=== PATIENT | female | born 1975 | race Caucasian/White ===

== ENCOUNTER 2018-11-23 13:21 | Emergency (ER) | payer MEDICAID ==
[~2018-11-23] VITALS: Ht 157.5 cm; Wt 117.0 kg
[2018-11-23] MEDS ORDERED: DOXY100C43 PO (14:19)
[2018-11-23] MEDS ORDERED: METH4TAB81 PO (14:19)
[2018-11-23] MEDS ORDERED: ALBU8.5H8 IH (14:19)
[2018-11-23] MEDS ORDERED: ipratropium/albuterol 3ml nebule NEB ONE (14:20)
--- NOTE | 2018-11-23 14:37 | NUR ---
RT PAGES FOR THE 2ND TIME
[2018-11-23 14:52] VITALS: BP 131/96
== END 2018-11-23 14:59 | disposition home or self-care (01) ==
LOC: ER 13:22
DX: J45.909 Unspecified asthma, uncomplicated (principal); Z98.890 Other specified postprocedural states; Z88.0 Allergy status to penicillin; Z88.1 Allergy status to other antibiotic agents; Z79.899 Other long term (current) drug therapy
CPT/HCPCS: 93005; 94640; 94760; 99284

== ENCOUNTER 2019-03-31 10:09 | Emergency (ER) | payer MEDICAID ==
[~2019-03-31] VITALS: Ht 162.6 cm; Wt 122.7 kg
[~2019-03-31 10:09] MED LIST: ALBU8.5H8 IH; CLIN-96 PO; METH4TAB81 PO; METR-159 PO
[2019-03-31 10:23] VITALS: BP 112/46
[2019-03-31] MEDS ORDERED: SULF1TAB49 PO (13:16)
[2019-03-31] MEDS ORDERED: LOPE2CAP PO (13:16)
[2019-03-31] MEDS ORDERED: ONDA4TAB6 PO (13:16)
== END 2019-03-31 13:28 | disposition home or self-care (01) ==
LOC: ER 10:09
DX: K57.92 Diverticulitis of intestine, part unspecified, without perforation or abscess without bleeding (principal); J45.909 Unspecified asthma, uncomplicated; R21 Rash and other nonspecific skin eruption; Z98.890 Other specified postprocedural states; Z60.2 Problems related to living alone; Z88.0 Allergy status to penicillin; Z88.1 Allergy status to other antibiotic agents; Z79.899 Other long term (current) drug therapy
CPT/HCPCS: 99283

== ENCOUNTER 2019-05-19 13:18 | Emergency (ER) | payer MEDICAID ==
[~2019-05-19] VITALS: Ht 162.6 cm; Wt 109.1 kg
[~2019-05-19 13:18] MED LIST changes: +LOPE2CAP PO; -METR-159 PO; +ONDA4TAB6 PO
[2019-05-19 13:42] VITALS: BP 127/75
[2019-05-19] MEDS ORDERED: NYST30CR2 TP (14:16)
== END 2019-05-19 14:33 | disposition home or self-care (01) ==
LOC: ER 13:19
DX: B37.2 Candidiasis of skin and nail (principal); J45.909 Unspecified asthma, uncomplicated; Z88.0 Allergy status to penicillin; Z88.1 Allergy status to other antibiotic agents; Z79.899 Other long term (current) drug therapy; Z98.890 Other specified postprocedural states; Z87.19 Personal history of other diseases of the digestive system
CPT/HCPCS: 99283

== ENCOUNTER 2019-07-02 11:10 | Emergency (ER) | payer MEDICAID ==
[~2019-07-02] VITALS: Ht 162.6 cm; Wt 123.0 kg
[~2019-07-02 11:10] MED LIST changes: +NYST30CR2 TP
[2019-07-02 11:51] LABS: URINE HCG NEGATIVE (NEG)
--- NOTE | 2019-07-02 12:17 | NUR ---
lab called stating they need a new urine sample.
[2019-07-02 12:29] LABS: BASOPHILS # (AUTO) 0.1 X10'3 (0-0.2); BASOPHILS % (AUTO) 0.6 % (0-1); EOSINOPHILS # (AUTO) 0.2 X10'3 (0-0.9); EOSINOPHILS % (AUTO) 1.7 % (0-6); HEMATOCRIT 32.1 % (35.0-45.0); HEMOGLOBIN 10.1 g/dl (12.0-16.0); LYMPHOCYTES # (AUTO) 1.8 X10'3 (1.1-4.8); LYMPHOCYTES % (AUTO) 19.5 % (21-51); MEAN CORPUSCULAR HGB CONC 31.6 g/dL (33.0-36.5); MEAN CORPUSCULAR VOLUME 72.8 FL (78-98); MONOCYTES # (AUTO) 0.7 X10'3 (0-0.9); MONOCYTES % (AUTO) 7.8 % (2-12); NEUTROPHILS # (AUTO) 6.5 X10'3 (1.8-7.7); NEUTROPHILS % (AUTO) 70.4 % (42-75); PLATELET COUNT 249 X10'3 (140-440); RED CELL DISTRIBUTION WIDTH 19.5 % (11.5-14.5); WHITE BLOOD COUNT 9.3 X10'3 (4.5-11.0)
[2019-07-02 12:45] LABS: ALANINE AMINOTRANSFERASE 22 U/L (12-78); ALBUMIN 3.1 G/DL (3.4-5.0); ALBUMIN/GLOBULIN RATIO 0.9 (1.1-1.5); ALKALINE PHOSPHATASE 73 IU/L (46-116); ANION GAP 5 (8-16); ASPARTATE AMINO TRANSFERASE 15 U/L (10-37); BILIRUBIN,TOTAL 1.2 MG/DL (0.1-1.0); BLOOD UREA NITROGEN 16 MG/DL (7-18); BUN/CREATININE RATIO 23.2 (6.6-38.0); CALCIUM 8.3 MG/DL (8.5-10.1); CHLORIDE 108 MMOL/L (99-107); CREATININE 0.69 MG/DL (0.40-0.90); GLUCOSE 87 MG/DL (70-104); LIPASE 96 U/L (73-393); SODIUM 141 MMOL/L (135-145); TOTAL CARBON DIOXIDE 27.7 MMOL/L (24-32); TOTAL PROTEIN 6.5 G/DL (6.4-8.2); eGFR > 90 ML/MIN
[2019-07-02 13:25] LABS: HYPOCHROMASIA 1+; PLATELET ESTIMATE NORMAL; POLYCHROMASIA 1+
[2019-07-02 13:26] LABS: ANISOCYTOSIS 2+; ELLIPTOCYTES 1+; MICROCYTOSIS 1+
[2019-07-02] MEDS ORDERED: ketorolac trometh. 30mg/ml inj. IV ONE (15:00)
[2019-07-02] MEDS ORDERED: normal saline 1000ML IV soln IVB ONE (15:00)
[2019-07-02 15:46] LABS: CLARITY,URINE SLIGHTLY CLOUDY (Clear); GLUCOSE, URINE NEGATIVE (Neg); KETONES,URINE 15 mg/dl (Neg); LEUKOCYTE ESTERASE ,URINE NEGATIVE (Neg); NITRITES, URINE NEGATIVE (Neg); OCCULT BLOOD,URINE LARGE (Neg); PH,URINE 5.5 (4.8-8.0); PROTEIN,URINE NEGATIVE (Neg)
[2019-07-02 15:47] LABS: COLOR,URINE DARK YELLOW (Yellow); UA COLLECTION TYPE CLN CATCH MIDSTREAM
[2019-07-02 15:55] LABS: RBC,URINE 50-100 /HPF (0-2); WBC,URINE 0-4 /HPF (0-4)
[2019-07-02 15:56] LABS: BACTERIA,URINE 1+ /HPF (Neg); MUCUS STRANDS MANY /LPF (Neg); SQUAMOUS EPITHELIAL CELL,UR MANY /LPF (FEW)
[2019-07-02] MEDS ORDERED: morphine 4 MG/ML inj SYRINge IV ONE (16:30)
[2019-07-02] MEDS ORDERED: DICY10CA88 PO (16:33)
--- NOTE | 2019-07-02 16:52 | NUR ---
transvaginal us done now, pt going to ct scanner
[2019-07-02] MEDS ORDERED: iohexol 350MG/ML 100ml bottle IV ONE (16:55)
[2019-07-02 19:13] VITALS: BP 122/86
--- NOTE | 2019-07-02 19:18 | NUR ---
DISCUSSED PT'S REQUEST FOR NICOTINE PATCH WITH DR TERRY; NEW ORDER RECEIVED.
[2019-07-02] MEDS ORDERED: nicotine 21mg patch - 24 hr TD ONE (19:20)
[2019-07-02] MEDS ORDERED: CEFD300C3 PO (19:58)
[2019-07-02] MEDS ORDERED: METR-159 PO (19:58)
[2019-07-02] MEDS ORDERED: CefTRIAXone 2gm/D5W 50ml 50 ML IV ONE (20:50)
--- NOTE | 2019-07-02 21:24 | NUR ---
[facility] CONTACTED FOR PT TRANSPORT HOME
== END 2019-07-02 21:26 | disposition home or self-care (01) ==
LOC: ER 11:11
DX: K57.92 Diverticulitis of intestine, part unspecified, without perforation or abscess without bleeding (principal); R11.2 Nausea with vomiting, unspecified; J45.909 Unspecified asthma, uncomplicated; F17.200 Nicotine dependence, unspecified, uncomplicated; Z98.890 Other specified postprocedural states; Z88.0 Allergy status to penicillin; Z88.1 Allergy status to other antibiotic agents; Z79.2 Long term (current) use of antibiotics; Z79.899 Other long term (current) drug therapy
CPT/HCPCS: 36415; 74177; 76830; 76856; 80053; 81001; 81025; 83690; 85025; 85610; 96361; 96365; 96375; 99284; J0696; J1885; J2270; J7030; Q9967

== ENCOUNTER 2019-07-19 12:13 | Emergency (ER) | payer MEDICAID ==
[~2019-07-19] VITALS: Ht 162.6 cm; Wt 109.1 kg
[~2019-07-19 12:13] MED LIST changes: +CEFD300C3 PO; +DICY10CA88 PO
[2019-07-19 12:32] VITALS: BP 125/76
[2019-07-19] MEDS ORDERED: mupirocin 2% ointment 22GM TP STA (13:37)
[2019-07-19] MEDS ORDERED: HYDROcodone/acetaminophen 10/325mg tab PO ONE (13:40)
== END 2019-07-19 14:19 | disposition home or self-care (01) ==
LOC: ER 12:14
DX: S90.822A Blister (nonthermal), left foot, initial encounter (principal); M54.5 Low back pain; R51 Headache; J45.909 Unspecified asthma, uncomplicated; Z98.890 Other specified postprocedural states; Z60.2 Problems related to living alone; Z88.0 Allergy status to penicillin; Z88.1 Allergy status to other antibiotic agents; Z79.899 Other long term (current) drug therapy; X58.XXXA Exposure to other specified factors, initial encounter; W18.2XXA Fall in (into) shower or empty bathtub, initial encounter; Y93.89 Activity, other specified; Y92.89 Other specified places as the place of occurrence of the external cause; Y99.8 Other external cause status
CPT/HCPCS: 99283

== ENCOUNTER 2019-07-24 12:14 | Emergency (ER) | payer MEDICAID ==
[2019-07-24 12:23] VITALS: BP 116/69
[2019-07-24 12:43] LABS: CLARITY,URINE SLIGHTLY CLOUDY (Clear); COLOR,URINE YELLOW (Yellow); GLUCOSE, URINE NEGATIVE (Neg); KETONES,URINE NEGATIVE (Neg); LEUKOCYTE ESTERASE ,URINE SMALL (Neg); NITRITES, URINE NEGATIVE (Neg); OCCULT BLOOD,URINE NEGATIVE (Neg); PROTEIN,URINE NEGATIVE (Neg); URINE HCG NEGATIVE (NEG)
[2019-07-24 12:49] LABS: UA COLLECTION TYPE CLN CATCH MIDSTREAM
[2019-07-24 12:51] LABS: RBC,URINE NONE SEEN /HPF (0-2)
[2019-07-24 12:52] LABS: BACTERIA,URINE 1+ /HPF (Neg); MUCUS STRANDS FEW /LPF (Neg); SQUAMOUS EPITHELIAL CELL,UR MANY /LPF (FEW)
[2019-07-24] MEDS ORDERED: nitrofuran/nitrofuran macrocrysal 100 MG capsule PO ONE (13:20)
[2019-07-24] MEDS ORDERED: PHEN-716 PO (13:38)
[2019-07-24] MEDS ORDERED: TERB30CR13 TP (13:38)
[2019-07-24] MEDS ORDERED: NITR100C6 PO (13:38)
== END 2019-07-24 14:06 | disposition home or self-care (01) ==
LOC: ER 12:15
DX: N39.0 Urinary tract infection, site not specified (principal); B35.3 Tinea pedis; J45.909 Unspecified asthma, uncomplicated; F17.200 Nicotine dependence, unspecified, uncomplicated; F10.99 Alcohol use, unspecified with unspecified alcohol-induced disorder; Z98.890 Other specified postprocedural states; Z88.0 Allergy status to penicillin; Z88.1 Allergy status to other antibiotic agents; Z79.899 Other long term (current) drug therapy; Y90.9 Presence of alcohol in blood, level not specified
CPT/HCPCS: 81001; 81025; 99283

== ENCOUNTER 2019-08-06 14:08 | Emergency (ER) | payer MEDICAID ==
[~2019-08-06] VITALS: Ht 162.6 cm; Wt 97.7 kg
[~2019-08-06 14:08] MED LIST changes: -CEFD300C3 PO; -DICY10CA88 PO; +NITR100C6 PO; +PHEN-716 PO; +TERB30CR13 TP
[2019-08-06 14:47] VITALS: BP 134/77
[2019-08-06] MEDS ORDERED: ketorolac tromethamine 15mg/ml inj. IM ONE (16:05)
== END 2019-08-06 16:54 | disposition home or self-care (01) ==
LOC: ER 14:08
DX: S46.811A Strain of other muscles, fascia and tendons at shoulder and upper arm level, right arm, initial encounter (principal); M54.2 Cervicalgia; Z88.0 Allergy status to penicillin; Z88.1 Allergy status to other antibiotic agents; Z79.2 Long term (current) use of antibiotics; Z79.899 Other long term (current) drug therapy; J45.909 Unspecified asthma, uncomplicated; Z98.890 Other specified postprocedural states; X58.XXXA Exposure to other specified factors, initial encounter; Y93.89 Activity, other specified; Y92.89 Other specified places as the place of occurrence of the external cause; Y99.8 Other external cause status
CPT/HCPCS: 73030; 96372; 99283; J1885

== ENCOUNTER 2019-08-16 13:09 | Emergency (ER) | payer MEDICAID ==
[~2019-08-16] VITALS: Ht 162.6 cm; Wt 122.0 kg
[~2019-08-16 13:09] MED LIST changes: +CLIN-90 PO; -CLIN-96 PO
[2019-08-16 13:35] VITALS: BP 129/56
[2019-08-16 14:07] LABS: BASOPHILS # (AUTO) 0.1 X10'3 (0-0.2); BASOPHILS % (AUTO) 0.8 % (0-1); EOSINOPHILS # (AUTO) 0.4 X10'3 (0-0.9); EOSINOPHILS % (AUTO) 4.3 % (0-6); HEMATOCRIT 34.1 % (35.0-45.0); HEMOGLOBIN 10.7 g/dl (12.0-16.0); LYMPHOCYTES % (AUTO) 24.2 % (21-51); MEAN CORPUSCULAR HEMOGLOBIN 22.7 PG (27.0-31.0); MEAN CORPUSCULAR HGB CONC 31.4 g/dL (33.0-36.5); MEAN CORPUSCULAR VOLUME 72.1 FL (78-98); MEAN PLATELET VOLUME 8.4 FL (7.4-10.4); MONOCYTES # (AUTO) 0.7 X10'3 (0-0.9); MONOCYTES % (AUTO) 8.6 % (2-12); NEUTROPHILS # (AUTO) 5.3 X10'3 (1.8-7.7); NEUTROPHILS % (AUTO) 62.1 % (42-75); PLATELET COUNT 251 X10'3 (140-440); RED BLOOD COUNT 4.73 X10'6 (4.20-5.60); RED CELL DISTRIBUTION WIDTH 19.1 % (11.5-14.5); WHITE BLOOD COUNT 8.5 X10'3 (4.5-11.0)
[2019-08-16 14:13] LABS: PARTIAL THROMBOPLASTIN TIME 26 SECONDS (22-32)
[2019-08-16 14:15] LABS: ALANINE AMINOTRANSFERASE 30 U/L (12-78); ALBUMIN 3.4 G/DL (3.4-5.0); ALBUMIN/GLOBULIN RATIO 0.9 (1.1-1.5); ALKALINE PHOSPHATASE 84 IU/L (46-116); ANION GAP 7 (8-16); ASPARTATE AMINO TRANSFERASE 17 U/L (10-37); BILIRUBIN,TOTAL 0.6 MG/DL (0.1-1.0); BLOOD UREA NITROGEN 18 MG/DL (7-18); CALCIUM 9.2 MG/DL (8.5-10.1); CHLORIDE 109 MMOL/L (99-107); CREATININE 0.75 MG/DL (0.40-0.90); GLUCOSE 96 MG/DL (70-104); POTASSIUM 4.4 MMOL/L (3.5-5.1); SODIUM 142 MMOL/L (135-145); TOTAL CARBON DIOXIDE 25.8 MMOL/L (24-32); TOTAL PROTEIN 7.3 G/DL (6.4-8.2); eGFR 84 ML/MIN
[2019-08-16 16:16] LABS: ANISOCYTOSIS 2+; HYPOCHROMASIA 1+; MICROCYTOSIS 1+; PLATELET ESTIMATE NORMAL
[2019-08-16 16:17] LABS: ELLIPTOCYTES 1+; POLYCHROMASIA FEW; SCHISTOCYTES FEW; TEAR DROP CELLS FEW
== END 2019-08-16 14:50 | disposition home or self-care (01) ==
LOC: ER 13:11
DX: B07.0 Plantar wart (principal); R06.02 Shortness of breath; D64.9 Anemia, unspecified; J45.909 Unspecified asthma, uncomplicated; Z98.890 Other specified postprocedural states; Z88.0 Allergy status to penicillin; Z88.1 Allergy status to other antibiotic agents; Z79.899 Other long term (current) drug therapy
CPT/HCPCS: 36415; 71045; 80053; 84484; 85025; 85610; 85730; 93005; 99284

== ENCOUNTER 2019-08-20 09:03 | Emergency (ER) | payer MEDICAID ==
[~2019-08-20] VITALS: Ht 167.6 cm; Wt 121.2 kg
[~2019-08-20 09:03] MED LIST changes: -CLIN-90 PO; +CLIN-96 PO
[2019-08-20 09:18] VITALS: BP 131/76
== END 2019-08-20 10:12 | disposition left against medical advice (07) ==
LOC: ER 09:03
DX: M79.672 Pain in left foot (principal); Z53.21 Procedure and treatment not carried out due to patient leaving prior to being seen by health care provider; Z79.899 Other long term (current) drug therapy

== ENCOUNTER 2019-09-06 15:44 | Emergency (ER) | payer MEDICAID ==
[~2019-09-06] VITALS: Ht 162.6 cm; Wt 127.3 kg
[~2019-09-06 15:44] MED LIST changes: +CLIN-90 PO; -CLIN-96 PO
[2019-09-06 17:35] VITALS: BP 131/65
== END 2019-09-06 17:25 | disposition home or self-care (01) ==
LOC: ER 15:45
DX: L85.3 Xerosis cutis (principal); M79.672 Pain in left foot; J45.909 Unspecified asthma, uncomplicated; F10.99 Alcohol use, unspecified with unspecified alcohol-induced disorder; Z98.890 Other specified postprocedural states; Z88.0 Allergy status to penicillin; Z88.1 Allergy status to other antibiotic agents; Z79.899 Other long term (current) drug therapy; Y90.9 Presence of alcohol in blood, level not specified
CPT/HCPCS: 99281

== ENCOUNTER 2021-02-03 14:53 | Emergency (ER) | payer MEDICAID ==
[~2021-02-03] VITALS: Ht 157.5 cm; Wt 111.4 kg
[~2021-02-03 14:53] MED LIST changes: -CLIN-90 PO; +CLIN-97 PO
[2021-02-03 15:00] VITALS: BP 135/73
[2021-02-03] MEDS ORDERED: LIDOcaine 1% W/epiNEPHrine 1:200,000 10ml vial IJ ONE (15:20)
[2021-02-03] MEDS ORDERED: DOXY100C43 PO (16:10)
== END 2021-02-03 16:46 | disposition home or self-care (01) ==
LOC: ER 14:53
DX: L72.3 Sebaceous cyst (principal); R22.0 Localized swelling, mass and lump, head; J45.909 Unspecified asthma, uncomplicated; Z98.890 Other specified postprocedural states; Z72.89 Other problems related to lifestyle; Z60.2 Problems related to living alone; Z88.0 Allergy status to penicillin; Z88.1 Allergy status to other antibiotic agents; Z79.899 Other long term (current) drug therapy; Z79.2 Long term (current) use of antibiotics
CPT/HCPCS: 10060; 99283

== ENCOUNTER 2021-02-05 13:05 | Emergency (ER) | payer MEDICAID ==
[~2021-02-05] VITALS: Ht 157.5 cm; Wt 111.0 kg
[~2021-02-05 13:05] MED LIST changes: +DOXY100C43 PO
[2021-02-05 13:14] VITALS: BP 132/80
[2021-02-05] MEDS ORDERED: acetaminophen 325mg tablet PO ONE (14:20)
== END 2021-02-05 14:37 | disposition home or self-care (01) ==
LOC: ER 13:06
DX: Z02.89 Encounter for other administrative examinations (principal); L72.3 Sebaceous cyst; J45.909 Unspecified asthma, uncomplicated; Z98.890 Other specified postprocedural states; Z72.89 Other problems related to lifestyle; Z60.2 Problems related to living alone; Z88.0 Allergy status to penicillin; Z88.1 Allergy status to other antibiotic agents; Z79.2 Long term (current) use of antibiotics; Z79.899 Other long term (current) drug therapy
CPT/HCPCS: 99282

== ENCOUNTER 2021-02-20 16:37 | Inpatient (IN) | payer MEDICAID ==
[~2021-02-20] VITALS: Ht 165.1 cm; Wt 124.5 kg
[~2021-02-20 16:37] MED LIST changes: -DOXY100C43 PO
[2021-02-20 17:34] LABS: HEMOGLOBIN 11.4 g/dl (12.0-16.0)
[2021-02-20] MEDS ORDERED: normal saline 1000ML IV soln IVB ONE (17:35)
[2021-02-20] MEDS ORDERED: proCHLORperazine 10 MG/2 ml inj IV ONE (17:35)
[2021-02-20] MEDS ORDERED: diphenhydrAMINE 50 mg/ml inj IV ONE (17:35)
[2021-02-20 17:36] LABS: HEMATOCRIT 37.8 % (35.0-45.0); MEAN CORPUSCULAR HEMOGLOBIN 21.1 PG (27.0-31.0); MEAN CORPUSCULAR HGB CONC 30.2 g/dL (33.0-36.5); MEAN CORPUSCULAR VOLUME 69.6 FL (78-98); MEAN PLATELET VOLUME 7.7 FL (7.4-10.4); PLATELET COUNT 374 X10'3 (140-440); RED BLOOD COUNT 5.43 X10'6 (4.20-5.60); RED CELL DISTRIBUTION WIDTH 20.4 % (11.5-14.5); WHITE BLOOD COUNT 17.2 X10'3 (4.5-11.0)
[2021-02-20 17:46] LABS: ALANINE AMINOTRANSFERASE 21 U/L (12-78); ALBUMIN 3.7 G/DL (3.4-5.0); ALBUMIN/GLOBULIN RATIO 0.9 (1.1-1.5); ALKALINE PHOSPHATASE 83 IU/L (46-116); AMYLASE 70 U/L (25-115); ANION GAP 11 (8-16); ASPARTATE AMINO TRANSFERASE 12 U/L (10-37); BILIRUBIN,TOTAL 0.5 MG/DL (0.1-1.0); BLOOD UREA NITROGEN 20 MG/DL (7-18); BUN/CREATININE RATIO 27.8 (6.6-38.0); CALCIUM 9.7 MG/DL (8.5-10.1); CHLORIDE 105 MMOL/L (99-107); CREATININE 0.72 MG/DL (0.40-0.90); GLUCOSE 118 MG/DL (70-104); LIPASE 104 U/L (73-393); POTASSIUM 3.6 MMOL/L (3.5-5.1); SODIUM 143 MMOL/L (135-145); TOTAL CARBON DIOXIDE 27.3 MMOL/L (24-32); TOTAL PROTEIN 7.8 G/DL (6.4-8.2); eGFR 88 ML/MIN
[2021-02-20 17:53] LABS: ANISOCYTOSIS 2+; ELLIPTOCYTES 1+; HYPOCHROMASIA 1+; MICROCYTOSIS 2+; PLATELET ESTIMATE NORMAL; SCHISTOCYTES FEW; TOTAL CELLS COUNTED 100
[2021-02-20] MEDS ORDERED: iohexol 300mg/ml 100ml inj. ONE (18:24)
--- NOTE | 2021-02-20 18:29 | NUR ---
PT HAS A COLOSTOMY, LAST BM YESTERDAY
[2021-02-20 19:03] LABS: URINE HCG NEGATIVE (NEG)
[2021-02-20 19:05] LABS: CLARITY,URINE SLIGHTLY CLOUDY (Clear); GLUCOSE, URINE NEGATIVE (Neg); KETONES,URINE TRACE mg/dl (Neg); LEUKOCYTE ESTERASE ,URINE NEGATIVE (Neg); OCCULT BLOOD,URINE NEGATIVE (Neg); PROTEIN,URINE TRACE mg/dl (Neg)
[2021-02-20 19:13] LABS: UA COLLECTION TYPE CLN CATCH MIDSTREAM
[2021-02-20 19:19] LABS: COLOR,URINE DARK YELLOW (Yellow); NITRITES, URINE NEGATIVE (Neg)
[2021-02-20 19:20] LABS: URIC ACID CRYSTALS 4+ /HPF (NEGATIVE)
[2021-02-20 19:21] LABS: BACTERIA,URINE NONE SEEN /HPF (Neg); MUCUS STRANDS MANY /LPF (Neg); RBC,URINE NONE SEEN /HPF (0-2); SQUAMOUS EPITHELIAL CELL,UR MODERATE /LPF (FEW); WBC,URINE 0-4 /HPF (0-4)
[2021-02-20] MEDS ORDERED: ondansetron/PF 4mg/2ml inj IV ONE (19:35)
[2021-02-20] MEDS ORDERED: morphine 4 MG/ML inj SYRINge IV ONE (19:35)
--- NOTE | 2021-02-20 20:08 | NUR ---
PT DOES NOT KNOW WHAT MEDS SHE TAKES WILL BE ASKED ONCE HE RETURNES
--- NOTE | 2021-02-20 20:09 | NUR ---
NG TUBE PLACE PT TOLERATED WITH SOME DIFFICULTY BUT IS TOLERATING NOW
--- NOTE | 2021-02-20 21:21 | NUR ---
I CAME BACK FROM MY LUNCH BREAK AND PER PT SHE "SNEEZED OUT HER NG TUBE". SHE REFUSES TO HAVE ANOTHER ONE PLACED. PA MADE AWARE. WILL COMNTINUE TO MONITOR
[2021-02-20] MEDS ORDERED: LORA10TA7 PO (21:49)
[2021-02-20] MEDS ORDERED: OXYC10TA47 PO (21:49)
[2021-02-20] MEDS ORDERED: MELO-102 PO (21:49)
[2021-02-20] MEDS ORDERED: CYCL-1 PO (21:49)
[2021-02-20] MEDS ORDERED: GABA600T13 PO (21:49)
[2021-02-20] MEDS ORDERED: ESOM20CA38 PO (21:49)
[2021-02-20] MEDS ORDERED: BUPR-72 PO (21:49)
[2021-02-20] MEDS ORDERED: AMIT100T61 (21:49)
[2021-02-20] MEDS ORDERED: potassium Cl 40MEQ/1/2NS 520ml 520 ML IV PRN ×2 (22:20)
[2021-02-20] MEDS ORDERED: albuterol 2.5 MG/3 ML nebule NEB PRN (22:20)
[2021-02-20] MEDS ORDERED: ondansetron/PF 4mg/2ml inj IV PRN (22:20)
[2021-02-20] MEDS ORDERED: morphine 2 MG/ML inj. syringe IV PRN (22:20)
--- NOTE | 2021-02-20 23:00 | NUR ---
Received report from Tonio DRAPER in the ER. Pt arrived on the unit via wheelchair and was able to ambulate without difficulty to the bathroom and then her bed. Pt belongings were stored at bedside, medications were taken to the pharmacy. Pt was on room air and SL. She had no signs of distress. Will continue to monitor.
--- NOTE | 2021-02-20 23:00 | NUR ---
Received report from Rebecca DRAPER.
[2021-02-20] MEDS: normal saline 1000ml 1,000 ML IV SCH (23:06)
[2021-02-20] MEDS ORDERED: IPRA4AER (23:07)
[2021-02-20] MEDS ORDERED: FERR324T2 PO (23:07)
[2021-02-20] MEDS ORDERED: DULO60CA65 PO (23:07)
[2021-02-20 23:13] VITALS: BP 118/64
[2021-02-20] MEDS: morphine 2 MG/ML inj. syringe IV PRN (23:49)
--- NOTE | 2021-02-21 06:10 | NUR ---
Patient in room [facility]. I have received report from Rebecca DRAPER and had the opportunity to ask questions and assume patient care.
--- NOTE | 2021-02-21 06:17 | NUR ---
Problems reprioritized. Patient report given, questions answered & plan of care reviewed with Linette DRAPER.
--- NOTE | 2021-02-21 06:17 | NUR ---
Problems reprioritized. Patient report given, questions answered & plan of care reviewed with Linette DRAPER.
[2021-02-21 06:34] LABS: ALANINE AMINOTRANSFERASE 19 U/L (12-78); ALBUMIN 3.2 G/DL (3.4-5.0); ALBUMIN/GLOBULIN RATIO 0.9 (1.1-1.5); ALKALINE PHOSPHATASE 67 IU/L (46-116); ANION GAP 7 (8-16); ASPARTATE AMINO TRANSFERASE 9 U/L (10-37); BILIRUBIN,TOTAL 0.5 MG/DL (0.1-1.0); BLOOD UREA NITROGEN 21 MG/DL (7-18); BUN/CREATININE RATIO 28.8 (6.6-38.0); CALCIUM 8.7 MG/DL (8.5-10.1); CHLORIDE 110 MMOL/L (99-107); CREATININE 0.73 MG/DL (0.40-0.90); GLUCOSE 105 MG/DL (70-104); POTASSIUM 3.7 MMOL/L (3.5-5.1); SODIUM 146 MMOL/L (135-145); TOTAL CARBON DIOXIDE 28.7 MMOL/L (24-32); TOTAL PROTEIN 6.8 G/DL (6.4-8.2); eGFR 87 ML/MIN
[2021-02-21 06:48] LABS: BASOPHILS # (AUTO) 0.1 X10'3 (0-0.2); BASOPHILS % (AUTO) 0.5 % (0-1); EOSINOPHILS # (AUTO) 0.1 X10'3 (0-0.9); EOSINOPHILS % (AUTO) 0.5 % (0-6); HEMATOCRIT 32.8 % (35.0-45.0); LYMPHOCYTES # (AUTO) 2.8 X10'3 (1.1-4.8); LYMPHOCYTES % (AUTO) 25.6 % (21-51); MEAN CORPUSCULAR HEMOGLOBIN 21.4 PG (27.0-31.0); MEAN CORPUSCULAR HGB CONC 30.6 g/dL (33.0-36.5); MEAN CORPUSCULAR VOLUME 69.9 FL (78-98); MEAN PLATELET VOLUME 7.9 FL (7.4-10.4); MONOCYTES # (AUTO) 0.7 X10'3 (0-0.9); MONOCYTES % (AUTO) 6.2 % (2-12); NEUTROPHILS # (AUTO) 7.4 X10'3 (1.8-7.7); NEUTROPHILS % (AUTO) 67.2 % (42-75); PLATELET COUNT 366 X10'3 (140-440); RED BLOOD COUNT 4.69 X10'6 (4.20-5.60); RED CELL DISTRIBUTION WIDTH 20.1 % (11.5-14.5)
[2021-02-21 06:51] VITALS: BP 135/79
--- NOTE | 2021-02-21 06:57 | NUR ---
Patient in room [facility]. I have received report from RN Rebecca and [facility] Student Nurse Charleen and had the opportunity to ask questions and assume patient care.
[2021-02-21] MEDS ORDERED: heparin, porcine 5000 units/ml vial SQ SCH (08:00)
[2021-02-21] MEDS ORDERED: pantoprazole 40 MG vial IV SCH (08:00)
[2021-02-21] MEDS ORDERED: duloxetine 30mg CAPSULE.DR PO SCH (08:00)
[2021-02-21] MEDS ORDERED: ipratropium/albuterol 3ml nebule NEB SCH (08:00)
[2021-02-21] MEDS ORDERED: K and/or MAG REPLACEMENT MC SCH (08:00)
[2021-02-21] MEDS: metroNIDAZOLE-Flagyl 500mg/NS 100 ML IV SCH ×3 (09:10→15:57)
[2021-02-21] MEDS ORDERED: magnesium hydroxide 30ml (MOM) UD suspension PO ONE (09:15)
[2021-02-21 09:25] LABS: PLATELET ESTIMATE NORMAL
[2021-02-21] MEDS: morphine 2 MG/ML inj. syringe IV PRN (09:25)
[2021-02-21 09:26] LABS: ANISOCYTOSIS 3+; HYPOCHROMASIA 1+; MICROCYTOSIS 2+
[2021-02-21 09:27] LABS: ELLIPTOCYTES FEW
[2021-02-21] MEDS: normal saline 1000ml 1,000 ML IV SCH (09:29)
--- NOTE | 2021-02-21 09:45 | NUR ---
Pt upset because she wants to eat and frustrated with the fact that she feels there is no plan for her to go home. Dr Smith rounding soon.
[2021-02-21 10:08] VITALS: BP 144/72
--- NOTE | 2021-02-21 11:00 | NUR ---
Pt was rude to aid, screaming at them for not having what she wants to eat. She is allergic to a many things and does not tolerate how "dumb this is" not having the right food.
--- NOTE | 2021-02-21 15:00 | NUR ---
At approx [address] Smith told her she would have a regular diet for lunch when he rounded this morning. This was confirmed by MD and Reg diet was ordered in [facility]. Pt also stated she has allergic rx to tomatoes including "rash and throat closes up". Tomatoes/tomato products were added to her allergy list and dietary dept was notified. Tray was delivered to pt and at 1445 pt requested I speak w/ her. She complained that the salad had tomato in it (dietary stated it was a red triplett pepper), and that she was unable to eat the seed covered roll, or the rice-pilaf dish due to the amount of fiber they contain. She stated she did not care for chicken so she would not be eating that either. She had only eaten the chocolate mousse. I advised her that I would ask the dietary dept to send up a low fiber/low residual menu so she can pick what she would like on her dinner tray. I removed the regular diet tray. I spoke to Mirna in dietary again and informed her of these issues. Mirna stated once the order was clarified she would go to the pt and discuss the foods available. Pt was notified and agreed to plan. Regular diet was modified in [facility] to include low fiber/low residual foods.
--- NOTE | 2021-02-21 18:30 | NUR ---
Problems reprioritized. Patient report given, questions answered & plan of care reviewed with Rebecca DRAPER.
--- NOTE | 2021-02-21 18:34 | NUR ---
Patient in room [facility]. I have received report from Linette DRAPER and had the opportunity to ask questions and assume patient care. Pt standing at bedside on the phone upset about the food on her dinner tray. Told pt that we were working on her discharge and brought her requested ice tea.
--- NOTE | 2021-02-21 19:10 | NUR ---
Pt discharge completed. Pt educated regarding the fact that her full liquid diet is supposed to be followed for 1-2 weeks and she is to follow up with her primary care physician within one week, packet with all information was given to the pt. IV was removed without incident, site is asymptomatic, dressing placed. Pt medications were retrieved from the pharmacy and given to pt, all medications accounted for. Pt was taken to the hospital lobby via wheelchair with all of her belongings, she was on room air with no signs of distress.
--- NOTE | 2021-02-22 13:54 | NUR ---
CASE MANAGEMENT DISCHARGE FOLLOW UP: T/c to pt, no answer, voicemail box is full. Will try again.
== END 2021-02-21 20:00 | disposition home or self-care (01) | DRG 247 ==
LOC: ER 16:38 → ED HOLD 22:16 → SUR 3N 22:50
PROVIDERS: ADMIT Internal Medicine; ATTEND Internal Medicine
PROC: BW211ZZ Computerized Tomography (CT Scan) of Abdomen and Pelvis using Low Osmolar Contrast (ICD-10-PCS; principal; 2021-02-20)
DX: K56.600 Partial intestinal obstruction, unspecified as to cause (principal); E66.01 Morbid (severe) obesity due to excess calories; D72.829 Elevated white blood cell count, unspecified; J45.909 Unspecified asthma, uncomplicated; F17.200 Nicotine dependence, unspecified, uncomplicated; F32.9 Major depressive disorder, single episode, unspecified; G89.29 Other chronic pain; K21.9 Gastro-esophageal reflux disease without esophagitis; M54.9 Dorsalgia, unspecified; Z79.899 Other long term (current) drug therapy; Z93.3 Colostomy status; Z98.891 History of uterine scar from previous surgery; Z68.42 Body mass index [BMI] 45.0-49.9, adult; Z88.0 Allergy status to penicillin; Z88.8 Allergy status to other drugs, medicaments and biological substances; Z91.030 Bee allergy status; Z91.018 Allergy to other foods
CPT/HCPCS: 36415; 74177; 80053; 81001; 81025; 82150; 83690; 85007; 85008; 85025; 87081; 94640; 94760; 96374; 96375; 99285; C9113; G0378; J0780; J1200; J1644; J2270; J2405; J3490; J7030; Q9967

== ENCOUNTER 2021-06-29 13:45 | Emergency (ER) | payer MEDICAID ==
[~2021-06-29] VITALS: Ht 162.6 cm; Wt 125.9 kg
[~2021-06-29 13:45] MED LIST changes: +ALBU8.5H17 IH; -ALBU8.5H8 IH; +AMIT100T61; +BUPR-72 PO; -CLIN-97 PO; +CYCL-1 PO; +DULO60CA65 PO; +ESOM20CA38 PO; +FERR324T2 PO; +GABA600T13 PO; +IPRA4AER; +LORA10TA7 PO; +MELO-102 PO; -METH4TAB81 PO; -NITR100C6 PO; -NYST30CR2 TP; -ONDA4TAB6 PO; +OXYC10TA47 PO; -PHEN-716 PO; -TERB30CR13 TP
[2021-06-29 14:03] VITALS: BP 177/79
[2021-06-29] MEDS ORDERED: CEPH-585 PO (18:54)
[2021-06-29] MEDS ORDERED: SULF1TAB49 PO (18:54)
== END 2021-06-29 19:22 | disposition home or self-care (01) ==
LOC: ER 13:46
DX: R10.9 Unspecified abdominal pain (principal); R19.7 Diarrhea, unspecified; Z48.89 Encounter for other specified surgical aftercare; Z91.018 Allergy to other foods; Z48.00 Encounter for change or removal of nonsurgical wound dressing; Z91.030 Bee allergy status; Z88.0 Allergy status to penicillin; Z88.1 Allergy status to other antibiotic agents; J45.909 Unspecified asthma, uncomplicated
CPT/HCPCS: 99283

== ENCOUNTER 2022-01-27 14:33 | Emergency (ER) | payer MEDICAID ==
[~2022-01-27] VITALS: Ht 162.6 cm; Wt 127.2 kg
[~2022-01-27 14:33] MED LIST changes: +CEPH-585 PO
[2022-01-27 14:37] VITALS: BP 161/77
[2022-01-27] MEDS ORDERED: ibuprofen tablet 400 MG TABLET PO ONE (14:55)
[2022-01-27] MEDS ORDERED: BACI1PAC7 TOP (14:55)
[2022-01-27] MEDS ORDERED: IBUP-1984 PO (14:55)
[2022-01-27] MEDS ORDERED: bacitracin 15gm ointment TP ONE (14:55)
== END 2022-01-27 15:17 | disposition home or self-care (01) ==
LOC: ER 14:33
DX: T23.292A Burn of second degree of multiple sites of left wrist and hand, initial encounter (principal); X08.8XXA Exposure to other specified smoke, fire and flames, initial encounter; Y93.89 Activity, other specified; Y92.89 Other specified places as the place of occurrence of the external cause; Y99.8 Other external cause status
CPT/HCPCS: 16000; 99283

== ENCOUNTER 2022-08-14 14:40 | Emergency (ER) | payer MEDICAID ==
[~2022-08-14] VITALS: Ht 165.1 cm; Wt 111.4 kg
[~2022-08-14 14:40] MED LIST changes: -CEPH-585 PO
[2022-08-14 14:43] VITALS: BP 132/80
[2022-08-14] MEDS ORDERED: HYDROcodone/acetaminophen 5mg/325mg tablet PO ONE (16:05)
--- NOTE | 2022-08-14 16:15 | NUR ---
po med given
[2022-08-15] MEDS ORDERED: DOXY-11 PO ×3 (17:57→18:24)
== END 2022-08-14 16:34 | disposition home or self-care (01) ==
LOC: ER 14:41
DX: M79.674 Pain in right toe(s) (principal); S90.424A Blister (nonthermal), right lesser toe(s), initial encounter; X58.XXXA Exposure to other specified factors, initial encounter; Y93.89 Activity, other specified; Y92.89 Other specified places as the place of occurrence of the external cause; Y99.8 Other external cause status
CPT/HCPCS: 73660; 99283

== ENCOUNTER 2022-08-15 14:47 | Emergency (ER) | payer MEDICAID ==
[~2022-08-15] VITALS: Ht 154.9 cm; Wt 111.4 kg
[2022-08-15 15:36] VITALS: BP 121/72
[2022-08-15] MEDS ORDERED: DOXYCYCLINE 100MG CAPSULE PO STA (17:49)
[2022-08-15] MEDS ORDERED: DOXY-11 PO ×3 (17:57→18:24)
== END 2022-08-15 18:38 | disposition home or self-care (01) ==
LOC: ER 14:48
DX: S90.424A Blister (nonthermal), right lesser toe(s), initial encounter (principal); M79.674 Pain in right toe(s); J45.909 Unspecified asthma, uncomplicated; Z98.890 Other specified postprocedural states; Z60.2 Problems related to living alone; Z91.030 Bee allergy status; Z88.0 Allergy status to penicillin; Z88.1 Allergy status to other antibiotic agents; Z79.2 Long term (current) use of antibiotics; Z79.899 Other long term (current) drug therapy; X58.XXXA Exposure to other specified factors, initial encounter; Y93.89 Activity, other specified; Y92.89 Other specified places as the place of occurrence of the external cause; Y99.8 Other external cause status
CPT/HCPCS: 10060; 99283; A6222; A6449

== ENCOUNTER 2022-12-17 08:53 | Emergency (ER) | payer MEDICAID ==
[~2022-12-17] VITALS: Ht 160 cm; Wt 122.0 kg
[~2022-12-17 08:53] MED LIST changes: +DOXY-11 PO
[2022-12-17 08:59] VITALS: BP 105/77
[2022-12-17] MEDS ORDERED: benzonatate 100mg capsule PO ONE (10:15)
[2022-12-17] MEDS ORDERED: BENZ-38 PO (10:22)
[2022-12-17] MEDS ORDERED: GUAI400T92 PO (10:22)
[2022-12-17] MEDS ORDERED: ALBU8HFA PO (10:45)
== END 2022-12-17 10:40 | disposition home or self-care (01) ==
LOC: ER 08:53
DX: J40 Bronchitis, not specified as acute or chronic (principal); J45.909 Unspecified asthma, uncomplicated; F17.200 Nicotine dependence, unspecified, uncomplicated; Z59.00 Homelessness unspecified; Z56.0 Unemployment, unspecified; Z91.030 Bee allergy status; Z88.0 Allergy status to penicillin; Z79.899 Other long term (current) drug therapy; Z79.1 Long term (current) use of non-steroidal anti-inflammatories (NSAID)
CPT/HCPCS: 71045; 99283

== ENCOUNTER 2022-12-23 15:53 | Emergency (ER) | payer MEDICAID ==
[~2022-12-23] VITALS: Ht 157.5 cm; Wt 134.1 kg
[~2022-12-23 15:53] MED LIST changes: +ALBU8HFA PO; +BENZ-38 PO; +GUAI400T92 PO
[2022-12-23 18:51] VITALS: BP 119/64
[2022-12-23] MEDS ORDERED: ketorolac trometh inj. 60 MG/2 ML VIAL IM ONE (19:05)
[2022-12-24] MEDS ORDERED: NAPR-56 PO (16:29)
[2022-12-24] MEDS ORDERED: CLIN150C2 PO (16:29)
== END 2022-12-23 19:26 | disposition home or self-care (01) ==
LOC: ER 15:54
DX: R05.9 Cough, unspecified (principal); T36.95XA Adverse effect of unspecified systemic antibiotic, initial encounter; J45.909 Unspecified asthma, uncomplicated; F17.200 Nicotine dependence, unspecified, uncomplicated; Z91.030 Bee allergy status; Z88.0 Allergy status to penicillin; Z88.1 Allergy status to other antibiotic agents; Z88.8 Allergy status to other drugs, medicaments and biological substances; Z98.890 Other specified postprocedural states; Z59.00 Homelessness unspecified; Z56.0 Unemployment, unspecified; Y92.89 Other specified places as the place of occurrence of the external cause
CPT/HCPCS: 96372; 99283; J1885

== ENCOUNTER 2022-12-24 13:58 | Emergency (ER) | payer MEDICAID ==
[~2022-12-24] VITALS: Ht 152.4 cm; Wt 135.0 kg
[2022-12-24 14:21] VITALS: BP 109/71
[2022-12-24] MEDS ORDERED: NAPR-56 PO (16:29)
[2022-12-24] MEDS ORDERED: CLIN150C2 PO (16:29)
[2022-12-24] MEDS ORDERED: traMADol 50MG tablet PO ONE (16:40)
[2022-12-24] MEDS ORDERED: clindamycin 150mg capsule PO ONE (16:40)
--- NOTE | 2022-12-24 16:50 | NUR ---
Patient declined to wait to take medications in ED. 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
== END 2022-12-24 16:54 | disposition home or self-care (01) ==
LOC: ER 13:59
DX: K04.7 Periapical abscess without sinus (principal); Z91.030 Bee allergy status
CPT/HCPCS: 99283

== ENCOUNTER 2022-12-29 10:41 | Emergency (ER) | payer MEDICAID ==
[~2022-12-29] VITALS: Ht 160 cm; Wt 135.0 kg
[~2022-12-29 10:41] MED LIST changes: +CLIN150C2 PO; +NAPR-56 PO
[2022-12-29 10:52] VITALS: BP 110/63
[2022-12-29] MEDS ORDERED: HYDROcodone/acetaminophen 5mg/325mg tablet PO ONE (12:15)
[2022-12-29] MEDS ORDERED: HYDR-3965 PO (12:19)
== END 2022-12-29 12:36 | disposition home or self-care (01) ==
LOC: ER 10:41
DX: S60.031A Contusion of right middle finger without damage to nail, initial encounter (principal); J45.909 Unspecified asthma, uncomplicated; Z98.890 Other specified postprocedural states; Z90.49 Acquired absence of other specified parts of digestive tract; Z59.00 Homelessness unspecified; Z56.0 Unemployment, unspecified; Z79.899 Other long term (current) drug therapy; Z91.030 Bee allergy status; Z88.1 Allergy status to other antibiotic agents; Z88.0 Allergy status to penicillin; W22.8XXA Striking against or struck by other objects, initial encounter; Y93.89 Activity, other specified; Y92.89 Other specified places as the place of occurrence of the external cause; Y99.8 Other external cause status
CPT/HCPCS: 73130; 99283

== ENCOUNTER 2023-02-09 21:34 | Emergency (ER) | payer MEDICAID ==
[~2023-02-09] VITALS: Ht 162.6 cm; Wt 134.0 kg
[~2023-02-09 21:34] MED LIST changes: -ALBU8HFA PO; -BENZ-38 PO; -CLIN150C2 PO; -NAPR-56 PO
[2023-02-09 21:37] VITALS: BP 132/79
[2023-02-09] MEDS ORDERED: acetaminophen 325mg tablet PO ONE (22:15)
== END 2023-02-09 23:02 | disposition home or self-care (01) ==
LOC: ER 21:34
DX: S50.11XA Contusion of right forearm, initial encounter (principal); G62.9 Polyneuropathy, unspecified; J45.909 Unspecified asthma, uncomplicated; Z87.19 Personal history of other diseases of the digestive system; Z90.49 Acquired absence of other specified parts of digestive tract; Z98.891 History of uterine scar from previous surgery; Z59.00 Homelessness unspecified; Z56.0 Unemployment, unspecified; Z79.899 Other long term (current) drug therapy; Z88.8 Allergy status to other drugs, medicaments and biological substances; Z88.0 Allergy status to penicillin; Z88.1 Allergy status to other antibiotic agents; Z91.030 Bee allergy status; W04.XXXA Fall while being carried or supported by other persons, initial encounter; Y93.K1 Activity, walking an animal; Y92.89 Other specified places as the place of occurrence of the external cause; Y99.8 Other external cause status
CPT/HCPCS: 73090; 99283

== ENCOUNTER 2023-03-09 21:07 | Emergency (ER) | payer MEDICAID ==
[~2023-03-09] VITALS: Ht 162.6 cm; Wt 126.0 kg
[2023-03-09 21:09] VITALS: BP 141/66
--- NOTE | 2023-03-09 22:38 | NUR ---
1840 REC'D PT IN POC IN NAD WITH FRIEND AND ERMD AT BS FOR EVAL; PRESENTS TO ER FOR C/O BILAT LOWER LEG EDEMA X 3 DAYS, PROGRESSIVELY WORSENING WITH SKIN "SPLIT" TO LEFT LAT ANKLE TODAY, POS PITTING EDEMA UP TO JUST BELOW KNEES WITH + PED PULSES
[2023-03-09 23:02] LABS: BASOPHILS # (AUTO) 0.1 X10'3 (0-0.2); HEMOGLOBIN 9.1 g/dl (12.0-16.0); LYMPHOCYTES # (AUTO) 2.1 X10'3 (1.1-4.8); RED BLOOD COUNT 4.59 X10'6 (4.20-5.60)
[2023-03-09 23:03] LABS: BASOPHILS % (AUTO) 0.9 % (0-1); EOSINOPHILS # (AUTO) 0.4 X10'3 (0-0.9); EOSINOPHILS % (AUTO) 6.7 % (0-6); HEMATOCRIT 30.8 % (35.0-45.0); LYMPHOCYTES % (AUTO) 30.8 % (21-51); MEAN CORPUSCULAR HEMOGLOBIN 19.8 PG (27.0-31.0); MEAN CORPUSCULAR HGB CONC 29.5 g/dL (33.0-36.5); MEAN CORPUSCULAR VOLUME 67.1 FL (78-98); MEAN PLATELET VOLUME 8.3 FL (7.4-10.4); MONOCYTES # (AUTO) 0.8 X10'3 (0-0.9); MONOCYTES % (AUTO) 11.5 % (2-12); NEUTROPHILS # (AUTO) 3.3 X10'3 (1.8-7.7); NEUTROPHILS % (AUTO) 50.1 % (42-75); PLATELET COUNT 274 X10'3 (140-440); RED CELL DISTRIBUTION WIDTH 21.1 % (11.5-14.5); WHITE BLOOD COUNT 6.7 X10'3 (4.5-11.0)
[2023-03-09 23:11] LABS: ALANINE AMINOTRANSFERASE 24 U/L (12-78); ALBUMIN 3.1 G/DL (3.4-5.0); ALKALINE PHOSPHATASE 72 IU/L (46-116); ANION GAP 7 (8-16); ASPARTATE AMINO TRANSFERASE 13 U/L (10-37); BILIRUBIN,TOTAL 0.4 MG/DL (0.1-1.0); BLOOD UREA NITROGEN 20 MG/DL (7-18); BUN/CREATININE RATIO 22.7 (10.0-20.0); CALCIUM 8.4 MG/DL (8.5-10.1); CHLORIDE 108 MMOL/L (99-107); CREATININE 0.88 MG/DL (0.40-0.90); GLUCOSE 99 MG/DL (70-104); POTASSIUM 3.9 MMOL/L (3.5-5.1); SODIUM 142 MMOL/L (135-145); TOTAL CARBON DIOXIDE 27.2 MMOL/L (24-32); TOTAL PROTEIN 6.3 G/DL (6.4-8.2); eGFR 69 ML/MIN
[2023-03-09] MEDS ORDERED: DOXY100C76 PO (23:47)
[2023-03-09 23:56] LABS: PLATELET ESTIMATE NORMAL
[2023-03-09 23:57] LABS: ANISOCYTOSIS 3+; HYPOCHROMASIA 1+; MICROCYTOSIS 2+; SPHEROCYTES FEW
[2023-03-09 23:58] LABS: ELLIPTOCYTES 1+
== END 2023-03-10 00:05 | disposition home or self-care (01) ==
LOC: ER 21:08
DX: R60.0 Localized edema (principal); J45.909 Unspecified asthma, uncomplicated; G89.29 Other chronic pain; F17.200 Nicotine dependence, unspecified, uncomplicated; Z98.890 Other specified postprocedural states; Z60.2 Problems related to living alone; Z59.00 Homelessness unspecified; Z56.0 Unemployment, unspecified; Z91.030 Bee allergy status; Z88.0 Allergy status to penicillin; Z88.1 Allergy status to other antibiotic agents; Z79.899 Other long term (current) drug therapy
CPT/HCPCS: 36415; 80053; 85008; 85025; 93005; 99284; A6449

== ENCOUNTER 2023-04-06 14:32 | Emergency (ER) | payer MEDICAID ==
[~2023-04-06] VITALS: Ht 162.6 cm; Wt 125.0 kg
[2023-04-06 14:47] VITALS: BP 125/70
--- NOTE | 2023-04-06 15:18 | NUR ---
DANCE PROFESSOR GENERAL ASSESSMENT REVIEWED AND AGREED WITH PT'S ASSESSMENT.
[2023-04-06 15:25] LABS: CLARITY,URINE CLOUDY (Clear); COLOR,URINE YELLOW (Yellow); GLUCOSE, URINE NEGATIVE (Neg); KETONES,URINE NEGATIVE (Neg); LEUKOCYTE ESTERASE ,URINE NEGATIVE (Neg); NITRITES, URINE NEGATIVE (Neg); OCCULT BLOOD,URINE NEGATIVE (Neg); PH,URINE 7.5 (4.8-8.0); PROTEIN,URINE NEGATIVE (Neg); UROBILINOGEN,URINE 0.2 E.U/dL (0.2-1.0)
[2023-04-06 15:28] LABS: URINE HCG NEGATIVE (NEG)
[2023-04-06 15:32] LABS: UA COLLECTION TYPE CLN CATCH MIDSTREAM
[2023-04-06 15:33] LABS: AMORPHOUS URATES 3+; BACTERIA,URINE FEW /HPF (Neg); MUCUS STRANDS NONE SEEN /LPF (Neg); RBC,URINE NONE SEEN /HPF (0-2); SQUAMOUS EPITHELIAL CELL,UR FEW /LPF (FEW); WBC,URINE 0-4 /HPF (0-4)
[2023-04-06] MEDS ORDERED: LIDOcaine 5% patch TP STA (15:47)
[2023-04-06] MEDS ORDERED: ketorolac trometh. 30mg/ml inj. IM ONE (15:50)
[2023-04-06] MEDS ORDERED: LIDO-15 TOP (15:52)
[2023-04-06] MEDS ORDERED: IBUP-1986 PO (15:52)
== END 2023-04-06 16:04 | disposition home or self-care (01) ==
LOC: ER 14:32
DX: R10.9 Unspecified abdominal pain (principal); J45.909 Unspecified asthma, uncomplicated; G89.29 Other chronic pain; M54.9 Dorsalgia, unspecified; Z91.030 Bee allergy status; Z88.0 Allergy status to penicillin; Z88.1 Allergy status to other antibiotic agents
CPT/HCPCS: 81001; 81025; 96372; 99283; J1885